=== PATIENT | female | born 1990 ===

== ENCOUNTER → 2022-05-18 13:17 | Outpatient (BNVA) | payer SELFPAY | PROVIDERS: PCP Family Medicine; Visit Provider Family Medicine | DX: Z12.4 Encounter for screening for malignant neoplasm of cervix (principal) | CPT/HCPCS: 87624 ==

== ENCOUNTER → 2022-07-01 08:41 | Outpatient (BNVA) | payer MEDICAID, SELFPAY | PROVIDERS: PCP Family Medicine; Visit Provider Family Medicine | DX: Z34.90 Encounter for supervision of normal pregnancy, unspecified, unspecified trimester (principal) | CPT/HCPCS: 81025 ==

== ENCOUNTER → 2022-08-07 12:29 | Outpatient (BNVA) | payer MEDICAID, SELFPAY | PROVIDERS: PCP Family Medicine; Visit Provider Obstetrics & Gynecology | DX: Z34.90 Encounter for supervision of normal pregnancy, unspecified, unspecified trimester (principal); Z36.89 Encounter for other specified antenatal screening; Z36.9 Encounter for antenatal screening, unspecified; Z3A.13 13 weeks gestation of pregnancy | CPT/HCPCS: 76801 ==

== ENCOUNTER → 2022-08-10 14:15 | Outpatient (BNVA) | payer MEDICAID, SELFPAY | PROVIDERS: PCP Family Medicine; Visit Provider Obstetrics & Gynecology | DX: Z34.90 Encounter for supervision of normal pregnancy, unspecified, unspecified trimester (principal) | CPT/HCPCS: 80307; 84315; 85027; 86592; 86762; 86803; 86850; 86900; 87077; 87086; 87184; 87340; 87491; 87591; 87806 ==

== ENCOUNTER 2022-08-17 16:02 | Emergency (ER) | payer MEDICAID, SELFPAY ==
[2022-08-17 16:30] VITALS: BP 124/79; PULSE 74; RESP 16; TEMP 36.6; O2SAT 95; BMI 37.2
[2022-08-17 18:12] LABS: Add Urine Microscopic? YES; Bilirubin Urine Neg (Negative); Blood Urine 2+ (Negative); Glucose Urine UA Norm (Normal); Ketones Urine 1+ (Negative); Leukocyte Esterase Urine Negative (Negative); Nitrate Urine Negative (Negative); Protein Urine Neg (Negative); Specific Gravity, Urine 1.025 (1.005-1.030); Urine Appearance Clear (CLEAR); Urine Color Yellow (Yellow); Urobilinogen Urine Norm (Negative); pH Urine 5 (5-7)
[2022-08-17 18:13] LABS: Add Urine Culture? No; Bacteria Urine TRACE /hpf; Mucus Urine 1+ /hpf; RBC Urine 0-4 /hpf (0-2); Squamous Epithelial Cell Urine RARE /hpf (0-5); WBC Urine RARE /hpf (0-5)
[2022-08-17 18:13] LABS: Basophils # 0.1 10^3/uL (0.0-0.1); Basophils % 0.6 %; Eosinophils # 0.1 10^3/uL (0.0-0.8); Eosinophils % 1.3 %; Hematocrit 35.8 % (37.0-47.0); Lymphocytes # 1.7 10^3/uL (0.8-4.8); Lymphocytes % 15.4 %; Mean Corpuscular HGB Conc 33.5 g/dL (30.0-36.0); Mean Corpuscular Hemoglobin 30.5 pg (28.0-34.0); Mean Corpuscular Volume 91.1 fl (81-99); Mean Platelet Volume 9.6 fL (7.4-10.4); Monocytes # 0.5 10^3/uL (0.2-0.9); Neutrophils # 8.31 10^3/uL (1.8-7.7); Neutrophils % 77.2 %; Nucleated Red Blood Cells % 0 %; Platelet Count 325 10^3/cmm (130-400); Red Blood Count 3.93 10^6/uL (4.1-5.3); White Blood Count 10.8 10^3/uL (4.0-10.0)
[2022-08-17 18:38] LABS: Alanine Aminotransferase 13 U/L (0-33); Albumin Level 3.9 g/dL (3.5-5.2); Alkaline Phosphatase 53 U/L (35-105); Aspartate Amino Transferase 18 U/L (0-32); Blood Urea Nitrogen 9 mg/dL (6-20); Calcium 9.7 mg/dL (8.5-10.5); Carbon Dioxide 23 mmol/L (22-29); Chloride 100 mmol/L (98-107); Globulin 3.2 g/dL (1.3-4.6); Glomerular Filtration Rate 139.3 mL/min (90-130); Glucose 81 mg/dL (65-115); Osmolality Calculated 274 mOsm/kg (285-295); Sodium 133 mmol/L (136-145); Total Bilirubin 0.2 mg/dL (0.15-1.2); Total Protein 7.1 g/dL (6.6-8.7)
[2022-08-17 18:45] VITALS: BP 114/72; PULSE 78; RESP 16; O2SAT 98
--- NOTE | 2022-08-17 18:48 | ED_ITS ---
HPI - General: Chief complaint: Vaginal Bleeding Stated complaint: 14 weeks preg bleeding Time Seen by Provider: 08/17/22 18:33 Source: patient Mode of arrival: ambulatory Limitations: no limitations History of Present Illness: 31-year-old female who is 14 weeks this is her first states she had some spotting over the last 4 to 5 days along with some mild lower abdominal cramping she denies passing any clots denies any vomiting or diarrhea. She denies any worsening or improving factors. She follows with Dr. Rodrigues. Date of Last Menstrual Period: 05/06/22 Associated symptoms: Deny abdominal pain, headache(s), nausea or vomiting Review of Systems Const: Denies: fever(s), chills, body aches or change in appetite Eyes: Denies: blurry vision or eye discomfort ENMT: Denies: throat pain or dental pain Card: Denies: chest pain Resp: Denies: dyspnea GI: Denies: abdominal pain, nausea, vomiting or diarrhea : Reports: vaginal bleeding Musc: Denies: neck pain or back pain Skin/Breast: Denies: rash Neuro: Denies: headache(s) Psych: Denies: depression Moe/Lymph: Denies: easy bruising All/Imm: Denies: urticaria PFSH ED PFSH: Medical History Alcohol abuse Generalized anxiety disorder IUP (intrauterine ), incidental Major depression Family History Family/Other Diabetes maternal aunts Grandfather Diabetes maternal Unknown Hypertension Denies family history of Colon cancer Ovarian cancer Clotting disorder Heart disease Hyperlipidemia Breast cancer Anesthesia complication Bleeding disorder Uterine cancer Thyroid condition Stroke Female Reproductive History: Date of last menstrual period: 05/06/22 Spontaneous abortions: No Physical Exam Const: COMMON NORMALS: no acute distress, patient oriented x3 and healthy appearing HENMT: COMMON NORMALS: normocephalic and atraumatic HEAD & SCALP: normocephalic and atraumatic Eye: COMMON NORMALS: Equal, round and reactive pupils present and EOMs intact bilaterally PUPIL: Yes Equal, round and reactive pupils present Neck/C-Spine: COMMON NORMALS: full ROM and supple Chest: COMMONS NORMALS: normal inspection of the chest and normal palpation of entire chest wall Resp: COMMON NORMALS: normal respiratory effort, No retractions, No use of accessory muscles and clear to auscultation bilaterally AUSCULTATION: clear to auscultation bilaterally Cardio: COMMON NORMALS: regular rate, regular rhythm and No murmurs present (Cardio) RATE: regular rate RHYTHM: regular rhythm GI: COMMON NORMALS: Normal to inspection, nondistended, normoactive bowel sounds present, Soft to palpation, non-tender and no masses PALPATION: Yes Soft to palpation Extremity: COMMON NORMALS: normal to inspection and full ROM Neuro: COMMON NORMALS: patient oriented x3, moves all extremities and no focal motor deficits Psych: COMMON NORMALS: mental status grossly normal, Normal thought process present and cooperative THOUGHT PROCESS: Normal thought process present Skin: COMMON NORMALS: no rashes or lesions noted and no wounds GENERAL SKIN EXAM: no rashes or lesions noted Course Vital Signs: Vital signs: Vital Signs Temperature 98 F 08/17/22 16:30 Pulse Rate 78 08/17/22 18:45 Respiratory Rate 16 08/17/22 18:45 Blood Pressure 114/72 08/17/22 18:45 Pulse Oximetry 98 08/17/22 18:45 Oxygen Delivery Me thod 08/17/22 16:30 MDM - OB/Uterine Contractions Medical Decision Making Patient presents here with a threatened miscarriage did a bedside ultrasound IUP with consistent with dates heart rate is 154 her bleeding has been minimal she is well-appearing here she is stable for discharge she is to follow-up with her OB and return if worsening. Lab Data : 08/17/22 17:57 08/17/22 17:57 Laboratory Results WBC 10.8 10^3/uL (4.0-10.0) H 08/17/22 17:57 RBC 3.93 10^6/uL (4.1-5.3) L 08/17/22 17:57 Hgb 12.0 g/dL (11.5-15.3) 08/17/22 17:57 Hct 35.8 % (37.0-47.0) L 08/17/22 17:57 MCV 91.1 fl (81-99) 08/17/22 17:57 MCH 30.5 pg (28.0-34.0) 08/17/22 17:57 MCHC 33.5 g/dL (30.0-36.0) 08/17/22 17:57 RDW 12.0 % (12.1-15.1) L 08/17/22 17:57 Plt Count 325 10^3/cmm (130-400) 08/17/22 17:57 MPV 9.6 fL (7.4-10.4) 08/17/22 17:57 Neut % (Auto) 77.2 % 08/17/22 17:57 Lymph % (Auto) 15.4 % 08/17/22 17:57 Hutchinson % (Auto) 5.0 % 08/17/22 17:57 Eos % (Auto) 1.3 % 08/17/22 17:57 Baso % (Auto) 0.6 % 08/17/22 17:57 Neut # (Auto) 8.31 10^3/uL (1.8-7.7) H 08/17/22 17:57 Lymph # (Auto) 1.7 10^3/uL (0.8-4.8) 08/17/22 17:57 Hutchinson # (Auto) 0.5 10^3/uL (0.2-0.9) 08/17/22 17:57 Eos # (Auto) 0.1 10^3/uL (0.0-0.8) 08/17/22 17:57 Baso # (Auto) 0.1 10^3/uL (0.0-0.1) 08/17/22 17:57 Nucleated RBC % (auto) 0 % 08/17/22 17:57 Nucleated RBCs # 0.0 /100WBC 08/17/22 17:57 Sodium 133 mmol/L (136-145) L 08/17/22 17:57 Potassium 4.0 mmol/L (3.5-5.1) 08/17/22 17:57 Chloride 100 mmol/L (98-107) 08/17/22 17:57 Carbon Dioxide 23 mmol/L (22-29) 08/17/22 17:57 Anion Gap 14.0 (5-19) 08/17/22 17:57 BUN 9 mg/dL (6-20) 08/17/22 17:57 Creatinine 0.6 mg/dL (0.5-0.9) 08/17/22 17:57 GFR Calculation 139.3 mL/min (90-130) H 08/17/22 17:57 Glucose 81 mg/dL (65-115) 08/17/22 17:57 Calculated Osmolality 274 mOsm/kg (285-295) L 08/17/22 17:57 Calcium 9.7 mg/dL (8.5-10.5) 08/17/22 17:57 Total Bilirubin 0.2 mg/dL (0.15-1.2) 08/17/22 17:57 AST 18 U/L (0-32) 08/17/22 17:57 ALT 13 U/L (0-33) 08/17/22 17:57 Alkaline Phosphatase 53 U/L (35-105) 08/17/22 17:57 Total Protein 7.1 g/dL (6.6-8.7) 08/17/22 17:57 Albumin 3.9 g/dL (3.5-5.2) 08/17/22 17:57 Globulin 3.2 g/dL (1.3-4.6) 08/17/22 17:57 Urine Color Yellow (Yellow) 08/17/22 17:10 Urine Appearance Clear (CLEAR) 08/17/22 17:10 Urine pH 5 (5-7) 08/17/22 17:10 Ur Specific [place] 1.025 (1.005-1.030) 08/17/22 17:10 Urine Protein Neg (Negative) 08/17/22 17:10 Urine Glucose (UA) Norm (Normal) 08/17/22 17:10 Urine Ketones 1+ (Negative) H 08/17/22 17:10 Urine Blood 2+ (Negative) H 08/17/22 17:10 Urine Nitrate Negative (Negative) 08/17/22 17:10 Urine Bilirubin Neg (Negative) 08/17/22 17:10 Urine Urobilinogen Norm mg/dL (Negative) 08/17/22 17:10 Ur Leukocyte Esterase Negative (Negative) 08/17/22 17:10 Urine RBC 0-4 /hpf (0-2) H 08/17/22 17:10 Urine WBC Rare /hpf (0-5) 08/17/22 17:10 Ur Squamous Epith Cells Rare /hpf (0-5) 08/17/22 17:10 Amorphous Sediment Not Reportable 08/17/22 17:10 Urine Bacteria Trace /hpf (NONE) 08/17/22 17:10 Urine Mucus 1+ /hpf 08/17/22 17:10 Blood Type A Positive 08/17/22 17:57 Rho(D) Type Positive 08/17/22 17:57 Discharge Plan Discharge Patient Disposition: Home Clinical Impression: Threatened miscarriage Condition: Stable Prescriptions: No Action melatonin 5 mg tablet 5 mg PO DAILY venlafaxine 75 mg capsule,extended release 24hr 75 mg PO QAM 30 Days Qty: 30 3RF Rx Instructions: 75 mg PO every morning; sertraline 100 mg tablet 200 mg PO DAILY 30 Days Qty: 60 5RF hydroxyzine HCl 25 mg tablet 25 mg PO DAILY PRN (Reason: sleep trouble) 30 Days Qty: 30 5RF Gummies 400 mcg-35 mg- 25 mg-5 mg tablet,chewable PO nitrofurantoin macrocrystal 100 mg capsule 100 mg PO BID 7 Days Qty: 14 0RF Rx Instructions: must administer with a meal/food Discharge Orders: Discharge ED (Routine); Ordered 08/17/22 Ordered By: Fay Mueller Referrals: Yahir Rodrigues MD [Physician] - 1-3 days Violeta Salazar MD [Primary Care Provider] - Discharge Diet: Advance as tolerated Discharge Activity: Resume usual activity Patient Instructions: Threatened Miscarriage (ED) Coding Level of Care Code ED [facility] for Johanny Jones
== END 2022-08-17 19:29 | disposition home or self-care (01) ==
PROVIDERS: Family Medicine; Emergency Provider Emergency Medicine; PCP Family Medicine
DX: O20.0 Threatened abortion (principal); Z3A.14 14 weeks gestation of pregnancy
CPT/HCPCS: 36415; 80053; 81001; 84702; 85025; 86900; 99283

== ENCOUNTER → 2022-09-15 15:30 | Outpatient (BNVA) | payer MEDICAID, SELFPAY | PROVIDERS: PCP Family Medicine; Visit Provider Obstetrics & Gynecology | DX: Z34.90 Encounter for supervision of normal pregnancy, unspecified, unspecified trimester (principal) | CPT/HCPCS: 81000 ==

== ENCOUNTER → 2022-09-28 14:51 | Outpatient (BNVA) | payer BC, SELFPAY | PROVIDERS: PCP Family Medicine; Visit Provider Obstetrics & Gynecology | DX: Z36.89 Encounter for other specified antenatal screening (principal) | CPT/HCPCS: 76805 ==

== ENCOUNTER → 2022-10-05 11:50 | Outpatient (BNVA) | payer BC, MEDICAID, SELFPAY | PROVIDERS: PCP Family Medicine; Visit Provider Obstetrics & Gynecology | DX: Z34.90 Encounter for supervision of normal pregnancy, unspecified, unspecified trimester (principal) | CPT/HCPCS: 81000 ==

== ENCOUNTER → 2022-10-20 09:57 | Outpatient (BNVA) | payer BC, MEDICAID, SELFPAY | PROVIDERS: PCP Family Medicine; Visit Provider Nurse Practitioner Women's Health | DX: Z34.90 Encounter for supervision of normal pregnancy, unspecified, unspecified trimester (principal); F33.1 Major depressive disorder, recurrent, moderate; F41.1 Generalized anxiety disorder | CPT/HCPCS: 81000; 85027 ==

== ENCOUNTER → 2022-10-29 10:13 | Outpatient (BNVA) | payer BC, MEDICAID, SELFPAY | PROVIDERS: PCP Family Medicine; Visit Provider Obstetrics & Gynecology | DX: Z34.90 Encounter for supervision of normal pregnancy, unspecified, unspecified trimester (principal) | CPT/HCPCS: 76816; 82950 ==

== ENCOUNTER → 2022-11-16 10:08 | Outpatient (BNVA) | payer BC, MEDICAID, SELFPAY | PROVIDERS: PCP Family Medicine; Visit Provider Obstetrics & Gynecology | DX: Z34.00 Encounter for supervision of normal first pregnancy, unspecified trimester (principal) | CPT/HCPCS: 81000 ==

== ENCOUNTER → 2022-12-03 15:59 | Outpatient (BNVA) | payer BC, MEDICAID, SELFPAY | PROVIDERS: PCP Family Medicine; Visit Provider Nurse Practitioner Women's Health | DX: Z34.00 Encounter for supervision of normal first pregnancy, unspecified trimester (principal) | CPT/HCPCS: 84315; 85025 ==

== ENCOUNTER → 2022-12-18 07:33 | Outpatient (BNVA) | payer BC, MEDICAID, SELFPAY | PROVIDERS: PCP Family Medicine; Visit Provider Obstetrics & Gynecology | DX: Z34.00 Encounter for supervision of normal first pregnancy, unspecified trimester (principal) | CPT/HCPCS: 81000 ==

== ENCOUNTER 2022-12-29 09:21 | Oncology outpatient (recurring) (ONCR) | payer OTHER, BC, MEDICAID, SELFPAY ==
[2022-12-29 10:19] LABS: Basophils # 0.1 10^3/uL (0.0-0.1); Basophils % 0.5 %; Eosinophils # 0.2 10^3/uL (0.0-0.8); Eosinophils % 1.6 %; Hematocrit 32.7 % (37.0-47.0); Hemoglobin 10.7 g/dL (11.5-15.3); Lymphocytes # 1.5 10^3/uL (0.8-4.8); Lymphocytes % 14.1 %; Mean Corpuscular HGB Conc 32.7 g/dL (30.0-36.0); Mean Corpuscular Hemoglobin 27.5 pg (28.0-34.0); Mean Corpuscular Volume 84.1 fl (81-99); Mean Platelet Volume 9.1 fL (7.4-10.4); Monocytes # 0.6 10^3/uL (0.2-0.9); Monocytes % 5.5 %; Neutrophils # 8.34 10^3/uL (1.8-7.7); Nucleated Red Blood Cells % 0 %; Platelet Count 428 10^3/cmm (130-400); Red Blood Count 3.89 10^6/uL (4.1-5.3); Red Cell Distribution Width 13.2 % (12.1-15.1); White Blood Count 10.7 10^3/uL (4.0-10.0)
[2022-12-29 10:42] LABS: Alanine Aminotransferase 13 U/L (0-33); Albumin Level 3.4 g/dL (3.5-5.2); Alkaline Phosphatase 155 U/L (35-105); Anion Gap 15.8 (5-19); Aspartate Amino Transferase 24 U/L (0-32); Blood Urea Nitrogen 6 mg/dL (6-20); Carbon Dioxide 21 mmol/L (22-29); Chloride 102 mmol/L (98-107); Globulin 3.1 g/dL (1.3-4.6); Glomerular Filtration Rate 170.9 mL/min (90-130); Glucose 94 mg/dL (65-115); Iron 41 ug/dL (37-145); Osmolality Calculated 277 mOsm/kg (285-295); Percent Saturation 9.6 % (20-50); Potassium 3.8 mmol/L (3.5-5.1); Sodium 135 mmol/L (136-145); Total Bilirubin 0.2 mg/dL (0.15-1.2); Total Iron Binding Capacity 423 mcg/dl; Total Protein 6.5 g/dL (6.6-8.7); Unsaturated Iron Binding 382 ug/dL (112-347)
[2022-12-29 11:36] LABS: LAB Peripheral Smear Sent for Review
== END 2022-12-29 23:59 | disposition home or self-care (01) ==
LOC: ONCMED 09:22
PROVIDERS: PCP Family Medicine; Visit Provider Internal Medicine Medical Oncology
DX: D64.9 Anemia, unspecified (principal)
CPT/HCPCS: 36415; 80053; 83540; 83550; 85025

== ENCOUNTER → 2023-01-15 10:00 | Outpatient (BNVA) | payer OTHER, BC, SELFPAY | PROVIDERS: PCP Family Medicine; Visit Provider Obstetrics & Gynecology | DX: Z34.00 Encounter for supervision of normal first pregnancy, unspecified trimester (principal) | CPT/HCPCS: 81000; 87081 ==

== ENCOUNTER → 2023-01-22 08:00 | Outpatient (BNVA) | payer OTHER, BC, MEDICAID, SELFPAY | PROVIDERS: PCP Family Medicine; Visit Provider Obstetrics & Gynecology | DX: Z34.00 Encounter for supervision of normal first pregnancy, unspecified trimester (principal) | CPT/HCPCS: 81000 ==

== ENCOUNTER → 2023-01-29 11:07 | Outpatient (BNVA) | payer OTHER, BC, MEDICAID, SELFPAY | PROVIDERS: PCP Family Medicine; Visit Provider Obstetrics & Gynecology | DX: Z34.00 Encounter for supervision of normal first pregnancy, unspecified trimester (principal) | CPT/HCPCS: 84315; 87086 ==

== ENCOUNTER → 2023-02-05 13:38 | Outpatient (BNVA) | payer OTHER, BC, MEDICAID, SELFPAY | PROVIDERS: PCP Family Medicine; Visit Provider Obstetrics & Gynecology | DX: Z34.00 Encounter for supervision of normal first pregnancy, unspecified trimester (principal) | CPT/HCPCS: 81000 ==

== ENCOUNTER → 2023-02-11 13:41 | Outpatient (BNVA) | payer OTHER, BC, MEDICAID, SELFPAY | PROVIDERS: PCP Family Medicine; Visit Provider Obstetrics & Gynecology | DX: O48.0 Post-term pregnancy (principal) | CPT/HCPCS: 76819 ==

== ENCOUNTER 2023-02-11 15:27 | Outpatient (CLI) | payer OTHER, BC, MEDICAID, SELFPAY ==
[2023-02-11 15:40] VITALS: BP 131/69; PULSE 92; BMI 42.3
[2023-02-11 16:15] VITALS: BP 110/67; PULSE 70
[2023-02-11 16:45] VITALS: BP 118/71; PULSE 65
== END 2023-02-11 16:53 | disposition home or self-care (01) ==
LOC: OPOB 15:31 → OBGYN 15:32
PROVIDERS: PCP Family Medicine; Visit Provider Obstetrics & Gynecology
DX: Z36.89 Encounter for other specified antenatal screening (principal); Z3A.00 Weeks of gestation of pregnancy not specified
CPT/HCPCS: 59025

== ENCOUNTER → 2023-02-12 09:09 | Outpatient (BNVA) | payer OTHER, BC, MEDICAID, SELFPAY | PROVIDERS: PCP Family Medicine; Visit Provider Obstetrics & Gynecology | DX: Z34.00 Encounter for supervision of normal first pregnancy, unspecified trimester (principal) | CPT/HCPCS: 81000 ==

== ENCOUNTER 2023-02-13 08:09 | Inpatient (IN) | payer OTHER, BC, MEDICAID, SELFPAY ==
[2023-02-13] VITALS (45 sets, daily range): BP systolic 97–140; BP diastolic 53–85; PULSE 59–101; RESP 16–18; TEMP 35.5–36.1; BMI 41.8
[2023-02-13] MEDS: miSOPROStol 100 mcg tablet 25 MCG VAGINAL ×3 (08:31→18:17)
[2023-02-13 08:59] LABS: Basophils % 0.4 %; Eosinophils # 0.1 10^3/uL (0.0-0.8); Hematocrit 33.3 % (37.0-47.0); Hemoglobin 10.6 g/dL (11.5-15.3); Lymphocytes # 1.5 10^3/uL (0.8-4.8); Lymphocytes % 15.3 %; Mean Corpuscular HGB Conc 31.8 g/dL (30.0-36.0); Mean Corpuscular Volume 84.9 fl (81-99); Monocytes # 0.6 10^3/uL (0.2-0.9); Monocytes % 5.8 %; Neutrophils # 7.41 10^3/uL (1.8-7.7); Neutrophils % 77.2 %; Nucleated Red Blood Cells % 0 %; Platelet Count 418 10^3/cmm (130-400); Red Blood Count 3.92 10^6/uL (4.1-5.3); Red Cell Distribution Width 14.8 % (12.1-15.1); White Blood Count 9.6 10^3/uL (4.0-10.0)
--- NOTE | 2023-02-13 10:07 | PC.NURSE ---
This telegraphic typewriter operator chief went into room to ask questions about patient's mental health history/suicide assessment, patient asked if s/o could leave room for these questions. Patient's s/o became agitated and stated you think I don't already know about it? . He then exited the room.
--- NOTE | 2023-02-13 11:13 | PM.OPHPUD ---
Labor & Delivery H&P Update Date of Procedure: February 13, 2023 Date H&P Performed: 02/12/23 H&P update information: I have reviewed H&P completed within last 30 days, I have examined patient prior to procedure and No changes to prior documentation Admission Diagnosis:
--- NOTE | 2023-02-13 11:14 | PM.PN ---
Subjective Subjective: Ms. Geiger is a 31 year old est patient with an LMP of 05/06/2022, CHRISTOS 02/10/2023, placing her at 40 2/7 weeks today. Admitted this morning for elective induction. Vitals/I&O/Wt Last Vital Signs Temp 97.0 F L 02/13/23 07:20 Pulse 83 02/13/23 10:20 Resp 16 02/13/23 08:08 BP 113/83 02/13/23 10:20 O2 Del Method Room Air 02/13/23 08:14 Weight last 48 hrs Weight 107.048 kg Physical Exam Narrative: GA: Alert and oriented ?3. Lungs: Clear to auscultation bilaterally. Heart: Regular rhythm and rate. Abdomen: Gravid, full the height equals dates, nontender. 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 Extremities: no edema, no cyanosis, no calves pain. heart tracing: Basal rate: 140's bpm, Variability: moderate, Accelerations: present, Decelerations: absent, Contraction: irregular. Data 02/13/23 07:55 A&P Assessment and plan (1) Term : 31 year old est patient with an LMP of 05/06/2022, CHRISTOS 02/10/2023, placing her at 40 2/7 weeks today. Admitted this morning for elective induction. Admitted for elective induction. Cervix not favorable at this time. She was counseled regarding cervical ripening with misoprostol which is an off label use for cervical ripening. Currently she has a Alcala score of 2. Anticipate vaginal delivery. heart tracing category 1. Attestations Medical Necessity Statement*: In my professional medical opinion per admitting. Coding Level of Care Code Acute Code for Chg Fwd Diagnoses Term Z34.90
[2023-02-13 12:16] LABS: Amphetamines Screen Urine Negative (Negative); Barbiturates Screen Urine Negative (Negative); Benzodiazepines Screen Urine Negative (Negative); Cocaine Screen Urine Negative (Negative); Opiate Screen Urine Negative (Negative); PCP Screen Urine Negative (Negative); THC Screen Urine Positive (Negative)
--- NOTE | 2023-02-13 13:50 | ANES.PREANE2 ---
Pre-Anesthetic Assessment Height/Weight: Height 1.6 m Weight 107.048 kg Temp Pulse Resp BP O2 Del Method 97.0 F L 77 16 110/55 Room Air 02/13/23 07:20 02/13/23 13:40 02/13/23 08:08 02/13/23 13:40 02/13/23 08:14 Familial anesthetic complications: none Was Beta Lela taken within 24 hours: N/A Was Clonidine taken within 24 hours: N/A Social Tobacco (vapes) and No alcohol (h/o abuse) kathya Exam alert, oriented x 3, clear to auscultation bilaterally and regular rate & rhythm Airway Submandibular: within normal limits Cervical ROM: within normal limits Mallampati: Class II Dentition: full CV/HEM Anemia Plts 418k Neuropsych Anxiety and Depression Anesthetic Plan ASA status: 2 Anesthesia: Regional (specify below) (Labor epidural) Medications/Allergies Home Medications Medication Instructions Recorded Confirmed Last Taken Type sertraline 100 mg tablet 200 mg PO DAILY 30 days #60 tabs 07/22/22 02/13/23 Unknown Rx PNV 153-FA 400 mcg-om3 35 mg-dha 1 tab PO DAILY 08/10/22 02/13/23 Unknown History 25 mg-epa 5 mg-fish oil chew tablet ( Gummies) hydroxyzine HCl 25 mg tablet 25 mg PO DAILY PRN sleep trouble 11/17/22 02/13/23 Unknown Rx 30 days #30 tabs Allergies Allergy/AdvReac Type Severity Reaction Status Date / Time No Known Allergies Allergy Verified 02/11/23 14:23 Current Medications Generic Name Dose Route Start Last Admin Trade Name Jaysonq PRN Reason Stop Dose Admin Misoprostol 25 mcg 02/13/23 08:15 02/13/23 12:36 Misoprostol 100 Mcg Tablet VAGINAL 02/13/23 16:16 25 mcg Q4H ANTONETTE Administration PFSH Anesthesia Medical History Alcohol abuse Generalized anxiety disorder Major depression Surgical History No history of previous surgery Family History Family/Other Diabetes maternal aunts Grandfather Diabetes maternal Unknown Hypertension Denies family history of Colon cancer Ovarian cancer Clotting disorder Heart disease Hyperlipidemia Breast cancer Anesthesia complication Bleeding disorder Uterine cancer Thyroid condition Stroke Social History (Updated 01/29/23 @ 11:56 by Celestina Leblanc) Smoking and tobacco status: former smoker Female Reproductive History Date of last menstrual period: 05/01/22 : 1 Spontaneous abortions: No Data Anesthesia 02/13/23 07:55 Short CBC 02/13/23 Range/Units 07:55 WBC 9.6 (4.0-10.0) 10^3/uL Hgb 10.6 L (11.5-15.3) g/dL Hct 33.3 L (37.0-47.0) % MCV 84.9 (81-99) fl Plt Count 418 H (130-400) 10^3/cmm Neut % (Auto) 77.2 % Neut # (Auto) 7.41 (1.8-7.7) 10^3/uL Cardiac Studies: No Data to Display
[2023-02-13] MEDS: ondansetron 2 mg/ML SDV 2 mL 4 MG IVP (15:24)
[2023-02-13] MEDS: dextrose 5%-lactated ringers 1,000 ML 125 ML IV (15:24)
[2023-02-13] MEDS: fentaNYL 50 mcg/mL INJ 2mL IVP ×4 (15:34→22:27)
[2023-02-14] VITALS (96 sets, daily range): BP systolic 91–157; BP diastolic 44–96; PULSE 53–106; RESP 16–18; TEMP 36.1–37.3; O2SAT 91–100
[2023-02-14] MEDS: fentaNYL 50 mcg/mL INJ 2mL IVP ×4 (00:31→09:48)
[2023-02-14] MEDS: dextrose 5%-lactated ringers 1,000 ML 125 ML IV ×2 (01:23→17:03)
--- NOTE | 2023-02-14 09:33 | PM.PN ---
Subjective Subjective: Ms. Geiger is a 31 year old est patient with an LMP of 05/06/2022, CHRISTOS 02/10/2023, placing her at 40 3/7 weeks today. Admitted for elective induction. Vitals/I&O/Wt Last Vital Signs Temp 97.0 F L 02/14/23 04:28 Pulse 67 02/14/23 09:23 Resp 18 02/14/23 08:12 BP 105/59 02/14/23 09:23 Pulse Ox 95 02/14/23 05:35 O2 Del Method Room Air 02/13/23 08:14 02/13/23 02/14/23 02/14/23 22:59 06:59 14:59 Intake Total 1000 / 1000 Balance 1000 / 1000 Weight last 48 hrs Weight 107.048 kg Physical Exam Narrative: GA: Alert and oriented ?3. Lungs: Clear to auscultation bilaterally. Heart: Regular rhythm and rate. Abdomen: Gravid, full the height equals dates, nontender. 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 Extremities: no edema, no cyanosis, no calves pain. heart tracing: Basal rate: 140's bpm, Variability: moderate, Accelerations: present, Decelerations: absent, Contraction: irregular. Data 02/13/23 07:55 A&P Assessment and plan (1) Term : 31 year old est patient with an LMP of 05/06/2022, CHRISTOS 02/10/2023, placing her at 40 3/7 weeks today. Admitted for elective induction. Progressing in labor. Oxitocin started for labor augmentation. Pain under control with fentyni protocol. Plan epidural at 4-5 cm. Anticipate vaginal delivery. heart tracing category 1. Attestations Medical Necessity Statement*: In my professional per admitting diagnosis Coding Level of Care Code Acute Code for Chg Fwd Diagnoses Term Z34.90
--- NOTE | 2023-02-14 12:24 | ANES.PROC ---
Anesthesia Procedures Procedure/Date: 02/14/23 Epidural: Time Out Performed: Yes Consents Signed: Procedure Consent Consent: requested by attending/covering physician, from patient, risks and benefits reviewed and patient agrees to proceed Lumbar Level: L3-L4 Epidural position: sitting Epidural procedure: sterile prep of area, 1% lidocaine to numb the area, 18 g needle, neg for paresthesia, test dose given, 1.5% xylocaine 1:200k epi, 0.2% Ropivacaine bolus ml (5), placed PCEA, no systemic response, sterile dressing applied and 0.2% Ropiavacaine @ mls/hr (13) Additional Comments: RAUL at 5cm, cath at 10cm
[2023-02-14] MEDS: oxytocin 30 UNIT/500 ML BAG 600 UNIT IV (21:55)
--- NOTE | 2023-02-14 22:03 | PM.DELIVERY ---
Delivery Note: Date of delivery: February 14, 2023 Pre-delivery diagnoses: Term Post-delivery diagnoses: Term delivered Procedure: A spontaneous vaginal delivery Delivering Physician: Yahir Rodrigues MD Estimated blood loss (mL): 300 Pre-Delivery Course: Ms. Geiger is a 31 year old est patient with an LMP of 05/06/2022, CHRISTOS 02/10/2023, placing her at 40 2/7 weeks today. Admitted for elective induction. HPI: Received appropriate care. Daily vitamins since two months prior to conception. labs have all been normal, including negative for HIV. She was found to negative for Group B Strep from screening at 36 weeks. She has gained approximately 20 lbs throughout the . She denies a history of HTN during . Glucose tolerance screening for gestational diabetes was negative. complicated by depression and anxiety. Delivery: The patient was noted to be complete and pushing, so was placed in the dorsal lithotomy position, prepped and draped in the usual sterile fashion for a vaginal delivery. Pt. Noted to have epidural anesthesia. At 2151 the patient delivered a viable term female infant weighing 2750 g with scores of 8 and 9 at one and five minutes, respectively. The vertex was delivered spontaneously over intact perineum. The patient was asked to push and the head delivered spontaneously in the NEIL position, over an intact perineum. A nuchal cord was checked and 1 nuchal cord noted, and relieved around head as necessary. The anterior shoulder delivered easily and the posterior shoulder followed. The remainder of the was easily delivered and the oropharynx and nasopharynx was bulb suctioned. The was noted to have spontaneous cry and spontaneous movement of all four extremities. The cord was clamped x 2 and cut and noted to have 2 arteries and one vein. The was passed to the mother's at where nursing personnel were in attendance. The placenta delivered intact spontaneous and the uterus was explored. 20 units of Pitocin was placed in the IV bag to firm the uterus. Examination of the cervix and vaginal vault did not reveal any lacerations. A vaginal pack was then placed. Examination of the perineum showed no laceration. The vaginal pack was then removed. The patient tolerated this procedure well, and recovered in L&D with her in the LDR room. All sponge and needle counts were correct. History History History 1 Term 0 Miscarriages/Ectopic Living Children Coding Level of Care Code Acute Code for Chg Fwd Diagnoses
[2023-02-15] VITALS (8 sets, daily range): BP systolic 101–135; BP diastolic 64–79; PULSE 74–99; RESP 14–16; TEMP 36.7–37.3; O2SAT 97–98
[2023-02-15] MEDS: lanolin oint 7 gm 1 APPLIC TOPICAL ×2 (01:29→01:30)
[2023-02-15] MEDS: benzocaine-menthol 78 gm Canister 1 SPRAY TOPICAL (01:30)
[2023-02-15] MEDS: prenatal vitamin Capsule 1 CAP PO (08:45)
[2023-02-15] MEDS: ibuprofen 800 mg tablet PO ×2 (08:45→20:55)
[2023-02-15] MEDS: docusate sodium 100 mg Capsule PO ×2 (08:45→20:55)
--- NOTE | 2023-02-15 09:41 | ANE.PACU2 ---
Inpatient post-anesthesia follow up: Airway intact: Yes Vital signs: Temperature 98.9 F Pulse Rate 99 Respiratory Rate 14 Blood Pressure 130/74 Pulse Oximetry 98 Oxygen Delivery Me thod Room Air Oxygen Flow Rate Fraction of Inspir ed Oxygen Hydration adequate: Yes Nausea and vomiting: No Pain level: 2 Mental status: Baseline
[2023-02-15 11:15] LABS: Hematocrit 30.3 % (37.0-47.0); Hemoglobin 9.6 g/dL (11.5-15.3); Mean Corpuscular HGB Conc 31.7 g/dL (30.0-36.0); Mean Corpuscular Hemoglobin 27.2 pg (28.0-34.0); Mean Corpuscular Volume 85.8 fl (81-99); Platelet Count 377 10^3/cmm (130-400); Red Blood Count 3.53 10^6/uL (4.1-5.3); Red Cell Distribution Width 14.8 % (12.1-15.1); White Blood Count 18.6 10^3/uL (4.0-10.0)
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
--- NOTE | 2023-02-16 08:10 | P.DS_ITS ---
Discharge Providers MULTI PUNCH OPERATOR Date of Admission: 02/13/23 08:09 Date of Discharge: 02/16/23 Attending Provider at Admission: Yahir Rodrigues MD Attending Provider at Discharge: Yahir Rodrigues MD Primary MULTI PUNCH OPERATOR: Yahir Rodrigues MD Primary Care Provider: Violeta Salazar MD Diagnoses at Discharge Discharge Diagnosis (1) Major depression: Status: Acute Qualifiers: Major depression recurrence: recurrent Active/Remission status: currently active Major depression episode severity: moderate Qualified Code(s): F33.1 - Major depressive disorder, recurrent, moderate (2) Generalized anxiety disorder: Status: Acute (3) Term delivered: Status: Acute Reason for Visit Reason for Visit: induction Brief History: Ms. Geiger is a 31 year old est patient with an LMP of 05/06/2022, [facility] 02/10/2023, placing her at 40 3/7 weeks today. Admitted for elective induction. HPI: Received appropriate care. Daily vitamins since two months prior to conception. labs have all been normal, including negative for HIV. She was found to negative for Group B Strep from screening at 36 weeks. She has gained approximately 20 lbs throughout the . She denies a history of HTN during . Glucose tolerance screening for gestational diabetes was negative. complicated by depression and anxiety. Hospital Course Hospital Course Ms. Geiger is a 31 year old est patient with an LMP of 05/06/2022, [facility] 02/10/2023, placing her at 40 3/7 weeks admitted for elective induction. She pro gressed augmented with oxytocin to have a spontaneous vaginal delivery without complications. and observation unremarkable. She was seen by psychiatry due to depression. Recommended to continue on medication. day 2, afebrile hemodynamically stable. Tolerating diet well. Ambulating without difficulty. Counseled regarding pelvic rest for 6 weeks (no sex, no tampons, no vaginal douches). Return to the emergency room if any fever, increased bleeding or pain. Decided to use the Nexplanon for contraception when she comes back for visit Information Peripartum Data: Infant Delivery Method: Vaginal Physical Exam Narrative: GA; alert and oriented x 3 HEENT: normal Breasts: engorged Nipples - skin intact Lungs; clear to auscultation Heart: regular rhythm, no murmurs. Abd: Appropriately tender. BS+. Uterine fundus below umbilicus. No Fundal Tenderness. Perineum: normal lochia. Extremities: no edema, no cyanosis, no tenderness. Urinary Catheter Management: Schafer: Cath Placed During This Visit: yes, but has since been removed by the nurse Reason for Continuing Indwelling Catheter: Decision to DC Catheter Urinary Catheter Date of Insertion: 02/14/23 Urinary Catheter Time of Insertion: 13:00 Date Urinary Catheter Removed: 02/14/23 Time Urinary Catheter Discontinued: 21:30 History History History 1 Term 0 Miscarriages/Ectopic Living Children Discharge Data Studies Completed and Pending Laboratory Results WBC 18.6 10^3/uL (4.0-10.0) H 02/15/23 10:47 RBC 3.53 10^6/uL (4.1-5.3) L 02/15/23 10:47 Hgb 9.6 g/dL (11.5-15.3) L 02/15/23 10:47 Hct 30.3 % (37.0-47.0) L 02/15/23 10:47 MCV 85.8 fl (81-99) 02/15/23 10:47 MCH 27.2 pg (28.0-34.0) L 02/15/23 10:47 MCHC 31.7 g/dL (30.0-36.0) 02/15/23 10:47 RDW 14.8 % (12.1-15.1) 02/15/23 10:47 Plt Count 377 10^3/cmm (130-400) 02/15/23 10:47 MPV 10.0 fL (7.4-10.4) 02/15/23 10:47 Neut % (Auto) 77.2 % 02/13/23 07:55 Lymph % (Auto) 15.3 % 02/13/23 07:55 Mcmullen % (Auto) 5.8 % 02/13/23 07:55 Eos % (Auto) 1.0 % 02/13/23 07:55 Baso % (Auto) 0.4 % 02/13/23 07:55 Neut # (Auto) 7.41 10^3/uL (1.8-7.7) 02/13/23 07:55 Lymph # (Auto) 1.5 10^3/uL (0.8-4.8) 02/13/23 07:55 Mcmullen # (Auto) 0.6 10^3/uL (0.2-0.9) 02/13/23 07:55 Eos # (Auto) 0.1 10^3/uL (0.0-0.8) 02/13/23 07:55 Baso # (Auto) 0.0 10^3/uL (0.0-0.1) 02/13/23 07:55 Nucleated RBC % (auto) 0 % 02/13/23 07:55 Nucleated RBCs # 0.0 /100WBC 02/13/23 07:55 Urine Opiates Screen Negative ng/mL (Negative) 02/13/23 09:30 Ur Barbiturates Screen Negative ng/mL (Negative) 02/13/23 09:30 Ur Phencyclidine Scrn Negative ng/mL (Negative) 02/13/23 09:30 Ur Amphetamines Screen Negative ng/mL (Negative) 02/13/23 09:30 U Benzodiazepines Scrn Negative ng/mL (Negative) 02/13/23 09:30 Urine Cocaine Screen Negative ng/mL (Negative) 02/13/23 09:30 U Marijuana (THC) Screen Positive ng/mL (Negative) H 02/13/23 09:30 Vitals Last Vital Signs Temp 98.0 F 02/15/23 21:45 Pulse 91 02/15/23 21:45 Resp 15 02/15/23 21:45 BP 101/64 02/15/23 21:45 Pulse Ox 98 02/15/23 17:00 O2 Del Method Room Air 02/15/23 17:00 Discharge Plan Discharge Patient Disposition: Home Condition: Stable Prescriptions: New docusate sodium [Colace] 100 mg capsule 100 mg PO BID Qty: 60 0RF acetaminophen 325 mg capsule 325 mg PO Q4H PRN (Reason: fever or pain) Qty: 60 0RF ferrous sulfate [Iron (ferrous sulfate)] 325 mg (65 mg iron) tablet 325 mg PO BID Qty: 60 0RF Continued sertraline 100 mg tablet 200 mg PO DAILY 30 Days Qty: 60 5RF Gummies 400 mcg-35 mg- 25 mg-5 mg tablet,chewable 1 tab PO DAILY hydroxyzine HCl 25 mg tablet 25 mg PO DAILY PRN (Reason: sleep trouble) 30 Days Qty: 30 5RF Discharge Orders: Discharge Order (Routine); Ordered 02/16/23 Ordered By: Yahir Rodrigues Referrals: Yahir Rodrigues MD [Physician] - 6 Weeks Discharge Diet: Usual diet Discharge Activity: Limit activity as instructed Patient Instructions: Opioid Safety, Bleeding (GEN), Vaginal Delivery (GEN), Your 's Appearance (GEN), Caring for Your Baby (GEN) Activity Restrictions/Additional Instructions: 1. Please call [facility] on next working day to make your post appointment in 6 weeks. 2. Please stay home until you come back to the clinic on first post-operative check up. 3. Please follow instructions on your medications CAREFULLY. 4. If you have abdominal incision, do not cover it unless dressing is necessary because of drainage. OK to shower, but avoid bath. Leave steri-strips until they fall off. If they are still on one week after surgery, you may remove them. 5. If you had vaginal surgery or vaginal repair, Dr. Rodrigues may instruct you to take SITZ bath. 6. Yellow, blood tinged odorous vaginal discharge is usually normal after hysterectomy or vaginal surgeries. 7. No sexual intercourse, tampons, or douches until you are completely released from the post-operative care. 8. Avoid constipation by eating right and maybe using some Metamucil or Milk of Magnesia. 9. All prescription refills are given during the working hours. Please do no wait till it runs out. Call the clinic at [phone] before your medication runs out. The clinic will get in touch with your doctor to prescribe medications if necessary. 10. Please remain within 40 mile radius from our hospital because emergencies do happen now and then during the post-operative period. 11. If you have stairs at home, take one step at a time slowly and minimize the number of trips. It helps to stay in one floor for the next few days. No lifting except what you can lift by one hand until you are released from the post-operative care. 12. Driving is discouraged until you are well healed. It may be 3-4 weeks before you feel strong enough to drive. You should be able to turn and look through the rear window without pain and you should be able to push the brake pedal very hard without pain before you drive. No fast rules, but SAFETY should be your primary concern. DO NOT drive if you are on sedating medications such as narcotics. 13. Call the clinic (during working hours) to make urgent appointment or go to the Emergency room, if any of the following occurs: i. Vaginal bleeding becomes heavy, more than a period. ii. Incision becomes red and sore, or drains pus. iii. Your temperature is over 100.4 or you have chill. iv. IV site becomes red and swollen (a little ``knot?? is usually OK) v. Persistent nausea and vomiting vi. Persistent constipation or diarrhea vii. Rash or allergic reaction to medications. Discharge Attestations MULTI PUNCH OPERATOR Time Spent in Discharge Care*: greater than 30 min Coding Level of Care Code Acute Code for Chg Fwd Diagnoses Major depression F33.1 Major depression recurrence: recurrent Active/Remission status: currently active Major depression episode severity: moderate Generalized anxiety disorder F41.1 Term delivered O80
[2023-02-16] MEDS: docusate sodium 100 mg Capsule PO (10:20)
[2023-02-16] MEDS: ibuprofen 800 mg tablet PO (10:20)
[2023-02-16] MEDS: prenatal vitamin Capsule 1 CAP PO (10:20)
[2023-02-16 10:25] VITALS: BP 121/80; PULSE 75; RESP 17; TEMP 36.4; O2SAT 99
[2023-02-16 13:00] VITALS: BP 121/80; PULSE 75; RESP 17; TEMP 36.4; O2SAT 99
== END 2023-02-16 13:00 | disposition home or self-care (01) | DRG 806 ==
LOC: OPOB 08:29 → OBGYN 08:45
PROVIDERS: Admitting Provider Obstetrics & Gynecology; PCP Family Medicine; Visit Provider Obstetrics & Gynecology
DX: O48.0 Post-term pregnancy (principal); F33.1 Major depressive disorder, recurrent, moderate; Z37.0 Single live birth; O99.324 Drug use complicating childbirth; F12.90 Cannabis use, unspecified, uncomplicated; O99.344 Other mental disorders complicating childbirth; F41.1 Generalized anxiety disorder; F10.11 Alcohol abuse, in remission; O69.81X0 Labor and delivery complicated by cord around neck, without compression, not applicable or unspecified; Z3A.40 40 weeks gestation of pregnancy; Z62.898 Other specified problems related to upbringing; Z79.899 Other long term (current) drug therapy; Z81.8 Family history of other mental and behavioral disorders
CPT/HCPCS: 36415; 51702; 59025; 59409; 80306; 85025; 85027; 96374; 96376; 98960; J2405; J2590; J2795; J3010; J7040; J7121

== ENCOUNTER 2023-03-31 13:34 | Oncology outpatient (recurring) (ONCR) | payer BC, MEDICAID, SELFPAY ==
[2023-03-31 13:50] VITALS: BP 107/75; PULSE 92; RESP 18; TEMP 36; O2SAT 98
[2023-03-31 14:07] LABS: Basophils # 0.1 10^3/uL (0.0-0.1); Basophils % 0.9 %; Eosinophils # 0.2 10^3/uL (0.0-0.8); Eosinophils % 3.4 %; Hematocrit 39.5 % (37.0-47.0); Hemoglobin 12.5 g/dL (11.5-15.3); Lymphocytes # 1.9 10^3/uL (0.8-4.8); Lymphocytes % 28.7 %; Mean Corpuscular HGB Conc 31.6 g/dL (30.0-36.0); Mean Corpuscular Hemoglobin 27.5 pg (28.0-34.0); Mean Platelet Volume 10.5 fL (7.4-10.4); Monocytes # 0.4 10^3/uL (0.2-0.9); Monocytes % 5.6 %; Neutrophils # 4.12 10^3/uL (1.8-7.7); Neutrophils % 61.3 %; Nucleated Red Blood Cells % 0 %; Platelet Count 330 10^3/cmm (130-400); Red Blood Count 4.54 10^6/uL (4.1-5.3); Red Cell Distribution Width 14.6 % (12.1-15.1); White Blood Count 6.7 10^3/uL (4.0-10.0)
[2023-03-31 18:25] LABS: Ferritin 40 ng/mL (15-150); Iron 55 ug/dL (37-145); Percent Saturation 16.8 % (20-50); Total Iron Binding Capacity 326 mcg/dl; Unsaturated Iron Binding 271 ug/dL (112-347)
== END 2023-03-31 23:59 | disposition home or self-care (01) ==
PROVIDERS: PCP Family Medicine; Visit Provider Internal Medicine Medical Oncology
DX: D64.9 Anemia, unspecified (principal); D75.839 Thrombocytosis, unspecified
CPT/HCPCS: 36415; 82728; 83540; 83550; 85025

== ENCOUNTER → 2023-04-02 16:00 | Outpatient (BNVA) | payer OTHER, BC, SELFPAY | PROVIDERS: PCP Family Medicine; Visit Provider Obstetrics & Gynecology | DX: Z39.2 Encounter for routine postpartum follow-up (principal); Z30.017 Encounter for initial prescription of implantable subdermal contraceptive; Z30.9 Encounter for contraceptive management, unspecified | CPT/HCPCS: 81025 ==

== ENCOUNTER → 2023-06-29 09:12 | Outpatient (BNVA) | payer BC, SELFPAY | PROVIDERS: PCP Family Medicine; Visit Provider Nurse Practitioner Family | DX: M25.532 Pain in left wrist (principal); M79.645 Pain in left finger(s) | CPT/HCPCS: 73110 ==

== ENCOUNTER → 2025-07-17 14:38 | Outpatient (BNVA) | payer OTHER, SELFPAY | PROVIDERS: PCP Family Medicine; Visit Provider Psychiatry & Neurology Psychiatry | DX: Z79.899 Other long term (current) drug therapy (principal) | CPT/HCPCS: 80053; 80061; 83036; 84443; 85025 ==